=== PATIENT | female | born 1965 | race Caucasian/White ===

== ENCOUNTER 2018-07-19 11:29 | Day surgery (SDC) | payer MEDICARE, OTHER ==
[2018-07-19] MEDS ORDERED: PROPOFOL 20 ML (12:58)
== END 2018-07-19 17:38 | disposition home or self-care (01) ==
LOC: GIL 11:29
DX: K29.60 Other gastritis without bleeding (principal); E78.5 Hyperlipidemia, unspecified
CPT/HCPCS: 43239; 88305; 88312